=== PATIENT | female | born 1995 | race Caucasian/White ===

== ENCOUNTER 2024-06-28 23:14 | Day surgery (SDC) | payer OTHER, MEDICAID ==
[2024-06-28 23:47] VITALS: BMI 28.3
[2024-06-28] MEDS ORDERED: hydrALAZINE 20 MG/ML VIAL SLOW IVP PRN (23:55)
[2024-06-29 00:06] LABS: Fetal Membranes Rupture No Membranes Rupture (No Rupture)
== END 2024-06-29 01:00 | disposition home or self-care (01) ==
LOC: CSHLD/OP 23:14
PROVIDERS: ATTEND Family Medicine
DX: O36.8130 Decreased fetal movements, third trimester, not applicable or unspecified (principal); O47.03 False labor before 37 completed weeks of gestation, third trimester; O09.33 Supervision of pregnancy with insufficient antenatal care, third trimester; Z03.71 Encounter for suspected problem with amniotic cavity and membrane ruled out; O13.3 Gestational [pregnancy-induced] hypertension without significant proteinuria, third trimester; O99.013 Anemia complicating pregnancy, third trimester; D50.9 Iron deficiency anemia, unspecified; O99.333 Smoking (tobacco) complicating pregnancy, third trimester; F17.210 Nicotine dependence, cigarettes, uncomplicated; O99.323 Drug use complicating pregnancy, third trimester; F15.90 Other stimulant use, unspecified, uncomplicated; O99.343 Other mental disorders complicating pregnancy, third trimester; F31.9 Bipolar disorder, unspecified; Z79.899 Other long term (current) drug therapy; Z88.0 Allergy status to penicillin; Z3A.36 36 weeks gestation of pregnancy
CPT/HCPCS: 76819; 84112; 99283

== ENCOUNTER 2025-02-09 15:04 | Emergency (ER) | payer MEDICAID ==
[2025-02-09 18:00] LABS: #Basophils 0.10 10x3/uL (0.0-0.2); #Eosinophils 1.41 10x3/uL (0.0-0.5); #Monocytes 0.58 10x3/uL (0.0-1.1); #Neutrophils 3.90 10x3/uL (1.5-8.4); %Basophils 1.1 % (0.0-2.0); %Eosinophils 16.1 % (0.0-6.0); %Lymphocytes 31.7 % (18.0-47.0); %Monocytes 6.6 % (0.0-10.0); %Neutrophils 44.4 % (40.0-75.0); Hematocrit 39.9 % (34.9-44.5); Hemoglobin 13.1 g/dL (12.0-15.5); Mean Corpuscular Hemoglobin 30.0 pg (27.0-33.0); Mean Corpuscular Volume 91.3 fL (81.6-98.3); Platelet Count 279 10x3/uL (150-450); Red Blood Cell (RBC) Count 4.37 10x6/uL (3.90-5.03); White Blood Cell (WBC) Count 8.78 10x3/uL (3.5-10.5)
[2025-02-09 18:09] LABS: D-Dimer Test Less than 0.19 mcg/mL (0.19-0.50); INR-International Normal Ratio 1.0; PTT 26.9 sec (22.0-33.0); Prothrombin Time 10.9 sec (9.5-12.1)
[2025-02-09 18:10] LABS: BHCG - Serum Negative (NEGATIVE); Pregs Control Background? CLEAR/WHITE (CLR/WHITE); Pregs Control Bar Appear? YES (CONTROL BAR)
[2025-02-09 18:16] LABS: ALT (SGPT) 16 U/L (Less than 34); AST (SGOT) 14 U/L (11-34); Albumin 4.4 g/dL (3.1-4.5); Alkaline Phosphatase 68 U/L (40-110); Anion Gap 10 mmol/L (10-20); BUN (Urea Nitrogen) 11 mg/dL (7.0-18.7); Bilirubin, Total 0.9 mg/dL (0.3-1.2); Calc. Creatinine Clearance 0 mL/min (70-130); Calcium 9.1 mg/dL (7.8-10.44); Carbon Dioxide 29 mmol/L (22-29); Chloride 104 mmol/L (98-107); Globulin 2.3 g/dL (2.4-3.5); Glucose 118 mg/dL (70-105); Potassium 3.5 mmol/L (3.5-5.1); Sodium 139 mmol/L (136-145)
[2025-02-09 18:20] LABS: Troponin I Less than 0.010 ng/mL (< 0.028)
== END 2025-02-09 19:10 ==
LOC: CSHERS 15:04
DX: R07.89 Other chest pain (principal); M79.662 Pain in left lower leg; F17.210 Nicotine dependence, cigarettes, uncomplicated; F17.290 Nicotine dependence, other tobacco product, uncomplicated; Z55.6 Problems related to health literacy
CPT/HCPCS: 36415; 71045; 80053; 83880; 84484; 84703; 85025; 85379; 85610; 85730; 86140; 93005